=== PATIENT | female | born 1995 | race Caucasian/White ===

== ENCOUNTER 2024-02-14 13:33 | Emergency (ER) | payer BC, SELFPAY ==
[2024-02-14 13:37] VITALS: BP 123/93
[2024-02-14 15:02] VITALS: BMI 23.7
--- NOTE | 2024-02-14 15:10 | ED.SKININJ ---
HPI-Injury
General
Chief Complaint: Bite
Source: patient
Exam Limitations: none
Time Seen by Provider: 02/14/24 14:37
Nursing documentation reviewed up to this point in time: agreed with
History of Present Illness-Injury
Is this injury a work related problem?: No
Is pt an associate of [facility]/[place]?: No
Initial Injury comments:
Patient states she was hand feeding stray kittens and was cut by the tooth of one of the kittens. SUstained small cut to left distal index finger. She was seen at , had Tdap and started on antibotic. Sent to ED for rabies series.
Past History
Past History
ED Past Medical History: Other (Concussion)
ED Past Surgical History: None
Social History
Tobacco: Non-smoker
Alcohol: None
Drug: None
Personal: Single
Living: with family
Family History
Family History: Other (Noncontributory)
Review of Systems
Review of Systems
Allergies reviewed?: Yes
All Other Systems: ROS reviewed and negative except as documented in HPI and ROS
Constitutional: Reports no symptoms
Musculoskeletal: Reports no symptoms
Skin: Reports other (small cut to distal right index finger)
Neurological: Reports no symptoms
Psychiatric: Reports no symptoms
Skin Exam
Bite
Right Distal Second Finger:
Type: animal
Skin has: abrasions but intact
Surrounding area around bite has: no evidence of erythema
Distal skin color and temperature: normal-warm & good color
Normal distal neurovascular exam: Yes
Phy Exam
General Physical Exam
General Presentation: well appearing and no apparent distress
General age: appears stated age
General Skin: warm and dry
General Mental: alert
General Hydration: appears well hydrated
Skin Exam
Skin Exam: normal color, warm/dry, no rash and other (0.5cm bite to distal right index finger)
Psychiatric Exam
Psychiatric Exam: normal mood/affect
Course
Vital Signs
Initial and Last Documented VS:
Initial Vital Signs
Temp Pulse Resp BP Pulse Ox
97.8 F 85 20 123/93 100
02/14/24 13:37 02/14/24 13:37 02/14/24 13:37 02/14/24 13:37 02/14/24 13:37
Last Documented Vital Signs
Temp Pulse Resp BP Pulse Ox
97.8 F 85 20 123/93 100
02/14/24 13:37 02/14/24 13:37 02/14/24 13:37 02/14/24 13:37 02/14/24 13:37
MDM/Problems Addressed
Differential Diagnosis Includes:
Patient to ED for rabies series after she sustained a small cut to her index finger from stray kitten. Tdap and antibitiotics from , sent to ED for rabies series. Wound without any s/s infection. Rabies series initiated, she will complete
series thru infusion center.
*Critical Care Note
Total Time (30-74mins, 75-104mins- exclusive of procedures): Not Applicable
ED Attending Note
-
Portions of this chart may have been created with voice recognition software.� Occasional wrong word or��sound alike� substitutions may have occurred due to the inherent limitations of voice recognition software.
Discharge Plan
Departure
Patient Disposition: Home (Routine Discharge)
Date of Disposition: 02/14/24
Time of Disposition: 15:24
Patient with high blood pressure during this ER visit?: No
Condition: Good
Covid-19: Not Applicable
Discharge Problem:
Cat bite
Instructions: Animal Bites (DC), Wound Care (DC)
Prescriptions:
New
RabAvert (PF) 2.5 unit Suspension For Reconstitution
1 ml IM . DIRECTED Qty: 3 0RF
Rx Instructions:
See Rabies Vaccine Post Exposure Prophylaxis Instruction Sheet for Dosing Instructions
No Action
levonorgestrel-ethinyl estrad [Aviane] 1 EACH tablet
1 tab PO DAILY
atenolol 25 MG tablet
25 mg PO DAILY PRN (Reason: hypertension, racing heartbeat) Qty: 30 0RF
Referrals:
Jasvir Robles CRNP [Family Provider] -
Stand Alone Forms: Rabies Vaccine Post Exp Dosing
Interventions
Interventions:
*Risk Screen - Suicide Last Done: 02/14/24 13:41
*General Assessment Last Done: 02/14/24 13:41
*Neglect/Abuse Screening Last Done: 02/14/24 13:41
*ED COVID-19 Vaccine History Last Done: 02/14/24 13:41
ED-Skin Assessment Last Done: 02/14/24 14:24
Discharge Date and Time
Print Language: KOREAN
[2024-02-14] MEDS: RABAVERT RABIES VACC W-DILUENT 2.5 UNIT IM (16:15)
[2024-02-14] MEDS: HyperRAB 1138 UNIT IM (16:17)
[2024-02-14 16:41] VITALS: BP 140/88
== END 2024-02-14 16:41 | disposition home or self-care (01) ==
LOC: EMR 13:33
PROVIDERS: EMERGENCY PHYSICIAN Emergency Medicine; FAMILY PHYSICIAN Nurse Practitioner Gerontology
DX: S60.410A Abrasion of right index finger, initial encounter (principal); W55.01XA Bitten by cat, initial encounter
CPT/HCPCS: 99282; 90471; 96372; 90375; 90675

== ENCOUNTER 2024-02-28 12:35 | Outpatient (RCR) | payer BC, SELFPAY ==
[2024-02-17 15:30] VITALS: BP 136/93
[2024-02-17] MEDS: RABAVERT RABIES VACC W-DILUENT 2.5 UNIT IM (16:00)
[2024-02-21 14:30] VITALS: BP 143/79
[2024-02-21] MEDS: RABAVERT RABIES VACC W-DILUENT 2.5 UNIT IM (14:41)
[2024-02-28 13:01] VITALS: BP 128/81
[2024-02-28] MEDS: RABAVERT RABIES VACC W-DILUENT 2.5 UNIT IM (13:08)
== END 2024-02-29 08:48 | disposition home or self-care (01) ==
LOC: OID 12:35
PROVIDERS: ATTENDING PHYSICIAN Emergency Medicine
DX: Z20.3 Contact with and (suspected) exposure to rabies (principal); Z23 Encounter for immunization
CPT/HCPCS: 90471; 90675